=== PATIENT | male | born 1980 | race Caucasian/White ===

== ENCOUNTER 2022-07-25 16:57 | Emergency (ER) | payer OTHER, SELFPAY ==
--- NOTE | 2022-07-25 17:03 | ED.UPPEXIN ---
HPI - Extremity Injury (Upper) General Chief Complaint: Wound/Laceration Stated Complaint: lt index finger injury Time Seen by Provider: 07/25/22 17:03 Source: patient and RN notes reviewed History of Present Illness HPI narrative: Patient is a 42-year-old male who presents to urgent care with complaints of a left index finger laceration. Patient states that he did just prior to arrival using electric hedge trimmers. Patient is left-hand dominant. States that he does have an updated tetanus within the last 10 years. No other acute complaints or injuries. No acute distress noted. Patient aware of the plan of care. Some parts of this dictation were generated by voice recognition software and may contain typographical and/or grammatical inaccuracies. Related Data Home Medications Medication Instructions Recorded Confirmed clindamycin phosphate 1 % lotion 1 applic topical DIRECTED 07/25/22 07/25/22 doxycycline hyclate 50 mg capsule 50 mg PO DIRECTED 07/25/22 07/25/22 Allergies Allergy/AdvReac Type Severity Reaction Status Date / Time erythromycin base Allergy Other Verified 07/25/22 17:43 Review of Systems Review of Systems: CONSTITUTIONAL: Denies fever, chills, or sweats. EYES: Denies visual changes, redness, or discharge. ENT: Denies rhinorrhea, congestion, sore throat, or otalgia. CARDIOVASCULAR: Denies chest pain, palpitations, or edema. RESPIRATORY: Denies cough or dyspnea. GASTROINTESTINAL: Denies abdominal pain, nausea, vomiting, or diarrhea. GENITOURINARY: Denies dysuria or hematuria. SKIN: Reports of a laceration to the left index finger MUSCULOSKELETAL: Denies back pain, joint pain, or myalgia. NEUROLOGIC: Denies headache, numbness, or weakness. All other systems reviewed are negative, except as documented in HPI. PMFSH Comments At the time of my signature, I reviewed and agree with the nursing past medical, surgical, social, and family history. There is no relevant family history pertinent to the patient complaint. Exam Narrative: GENERAL: This is a well-nourished, well-developed patient, in no apparent distress. HEAD: normocephalic, atraumatic. EYES: PERRL. Sclera clear/white. Vision is grossly intact. EARS: External ears normal, NOSE: External nose normal with no obvious nasal discharge, nares without redness, no rhinorrhea. THROAT: Mucous membranes moist, posterior pharynx clear. SKIN: 1.5 cm linear gaping 0.25 cm laceration to the test of the left index finger NEURO: awake, alert, and oriented to person, place and time. There were no obvious focal neurologic abnormalities. EXTREMITIES: Range of motion left upper extremity within normal limits with positive strong left radial pulse and capillary refill less than 2 seconds. Capillary refill within normal limits to affected left index finger. Course Course Level of Care: Express Care Visit Vital Signs Vital signs: Vital Signs Temperature 97.6 F 07/25/22 17:05 Pulse Rate 75 07/25/22 17:05 Respiratory Rate 16 07/25/22 17:05 Blood Pressure 143/80 H 07/25/22 17:05 Pulse Oximetry 100 07/25/22 17:05 Temperature 97.6 F 07/25/22 17:05 Pulse Rate 75 07/25/22 17:05 Respiratory Rate 16 07/25/22 17:05 Blood Pressure 143/80 H 07/25/22 17:05 Pulse Oximetry 100 07/25/22 17:05 Reviewed- Patient is informed that they may have pre-hypertension or hypertension based on a blood pressure reading in the department. I recommend the patient call the primary care provider listed on their discharge instructions or a physician of their choice this week to arrange follow-up for further evaluation of possible pre-hypertension or hypertension. Procedures Laceration Laceration 1: Site: hand (Finger) Side (If applicable): left Size (cm): 1.5 Description: linear Depth: simple, single layer Amount of anesthesia used (mL): 1 Pre-repair: wound explored, irrigated and irrigated exte
[2022-07-25 17:05] VITALS: BP 143/80; PULSE 75; RESP 16; TEMP 36.4; O2SAT 100
== END 2022-07-25 17:46 | disposition home or self-care (01) ==
PROVIDERS: Emergency Provider Nurse Practitioner Family; PCP Physician Assistant
DX: S61.211A Laceration without foreign body of left index finger without damage to nail, initial encounter (principal); W29.3XXA Contact with powered garden and outdoor hand tools and machinery, initial encounter
CPT/HCPCS: 12001; 99212; G0463

== ENCOUNTER 2022-08-01 18:04 | Emergency (ER) | payer OTHER, SELFPAY ==
--- NOTE | 2022-08-01 18:07 | ED.SKABFB ---
HPI - Skin/Abscess/Foreign Bdy General Chief complaint: Extremity Injury, Upper Stated complaint: INFECTED FINGER Time Seen by Provider: 08/01/22 18:10 Source: patient and RN notes reviewed Mode of arrival: ambulatory Limitations: dementia History of Present Illness HPI narrative: 42-year-old male presents with concern for infected finger. Reports he had sutures placed in the finger after getting it lacerated with ore trimmer 1 week ago. Reports he had 4 sutures placed, reports the last couple of days it has become red, swollen, more painful. He denies purulent drainage. He denies fever, aches, chills, sweats MD complaint: other (Redness) Related Data Allergies Allergy/AdvReac Type Severity Reaction Status Date / Time erythromycin base Allergy Other Verified 07/25/22 17:43 Review of Systems Review of Systems: CONSTITUTIONAL: Denies malaise, chills, sweats, or fever. SKIN: Reports redness, swelling, tenderness of the 2nd digit of the left hand. Denies purulent drainage, vesicles, bullae, numbness, pain beyond proportion MUSCULOSKELETAL: Denies joint pain or myalgia. NEUROLOGIC: Denies headache. All systems reviewed & are unremarkable except as noted in HPI and below PMFSH Comments At time of signature, agree with nursing past medical, surgical, social and family history. There is no relevant family history pertinent to the presenting complaint Exam Narrative: GENERAL: Well-appearing, well-nourished, and in no acute distress. HEAD: Normocephalic, atraumatic. EYES: PERRLA, conjunctivae clear ENT: Mucous membranes moist. NECK: Supple. No lymphadenopathy CHEST: Clear to auscultation. No respiratory distress. HEART: Regular rate and rhythm. SKIN: Warm, dry. Distal 2nd digit of the left hand is erythematous, indurated, tender, warmth with sharp margins, no drainage noted, sutures intact. No vesicles, bullae, necrosis, ecchymosis, crepitus noted. NEURO: Alert and oriented x3. PSYCH: Normal mood and affect Course Course Emergency Course: Patient is aware of diagnosis, understands and agrees to treatment plan. Anticipatory guidance given. Patient agrees to follow-up as directed and is aware of reasons to seek care at the emergency department. Portions of this record may have been created with voice recognition software Level of Care: Express Care Visit Vital Signs Vital signs: Reviewed. MDM - Skin/Abscess/Foreign Bdy MDM Narrative Medical decision making narrative: Does not appear at this time to be erythema multiforme, bullous, SJS, TEN; no evidence at this time to suggest RMSF, NSTI, endocarditis or Lyme disease; patient looks well, nontoxic and is tolerating oral intake; no neurologic signs or symptoms; no headache, photophobia or neck pain; afebrile. Patient does not have history of of penetrating trauma, laceration, blunt trauma, recent surgery, immunosuppression, malignancy, obesity, alcoholism, corticosteroid use. Discussed the importance of follow-up, patient agrees; question, cellulitis versus necrotizing soft tissue infection versus abscess. Critical Care Time Critical Care Time Critical Care Time: No Discharge Plan Discharge Clinical Impression: Wound infection Patient Disposition: Home, Self-Care Condition: Stable Instructions: Wound Infection (ED) Additional Instructions: Please follow up with your Primary Care Doctor within 48-72 hours - call for an appointment. Rest and elevate affected area; apply moist heat 3-4 times daily for 10-15 minutes (try to avoid keeping the sutures too moist). Take Motrin 600mg every 8 hours with food for pain. Please take Antibiotics as directed. If you experience any worsening redness, swelling, streaking (red lines), fever or chills please go to the ER Prescriptions: New sulfamethoxazole-trimethoprim 800-160 mg tablet 1 tablet PO Q12H 7 Days Qty: 14 0RF No Action doxycycline hyclate 50 mg capsule 50 mg PO DIRECTED cli
[2022-08-01 18:12] VITALS: BP 129/80; PULSE 59; RESP 16; TEMP 36.4; O2SAT 99
== END 2022-08-01 18:21 | disposition home or self-care (01) ==
PROVIDERS: Emergency Provider Nurse Practitioner; PCP Physician Assistant
DX: T81.49XA Infection following a procedure, other surgical site, initial encounter (principal)
CPT/HCPCS: 99213; G0463